=== PATIENT | female | born 1995 | race Caucasian/White ===

== ENCOUNTER → 2023-10-12 13:27 | Outpatient (REF) | payer BC, SELFPAY | LOC: PNTC 13:27 | PROVIDERS: ATTENDING PHYSICIAN Obstetrics & Gynecology | DX: O99.210 Obesity complicating pregnancy, unspecified trimester (principal) | CPT/HCPCS: 76811 ==

== ENCOUNTER → 2023-11-09 08:09 | Outpatient (REF) | payer BC, SELFPAY | LOC: PNTC 08:09 | PROVIDERS: ATTENDING PHYSICIAN Obstetrics & Gynecology | DX: O99.210 Obesity complicating pregnancy, unspecified trimester (principal) | CPT/HCPCS: 76816 ==

== ENCOUNTER 2023-12-24 20:11 | Emergency (ER) | payer BC, SELFPAY ==
[2023-12-24 20:15] VITALS: BP 156/97; BMI 45.9
--- NOTE | 2023-12-24 22:59 | ED.SKININJ ---
HPI-Injury
General
Chief Complaint: Bite
Source: patient
Time Seen by Provider: 12/24/23 21:44
Nursing documentation reviewed up to this point in time: agreed with
Travel History
Have you had any contact with someone who has COVID-19?: No
Do you have any symptoms of coronavirus? Fever > 100 degrees, chills, cough, shortness of breath, sore throat, loss of taste or smell, muscle aches, or headache?: No
History of Present Illness-Injury
Initial Injury comments:
Pleasant 28-year-old female who is 32 weeks was bitten by her vaccinated kitten today. She has bite coyne on her right hand. Denies any other injury. Last tetanus was 1 month ago. Denies fever, chills, nausea or vomiting.
Past History
Past History
ED Past Medical History: None
ED Past Surgical History: None
Social History
Tobacco: Non-smoker
Review of Systems
Review of Systems
Allergies reviewed?: Yes
All Other Systems: ROS reviewed and negative except as documented in HPI and ROS
Skin Exam
Bite
Right Hand:
Type: animal (Cat)
Skin has: puncture wounds
Surrounding area around bite has: no evidence of erythema
Distal skin color and temperature: normal-warm & good color
Normal distal neurovascular exam: Yes
Phy Exam
General Physical Exam
General Presentation: well appearing and no apparent distress
Cardiovascular Exam
Cardiovascular Exam: regular rate/rhythm and no edema
Pulmonary Exam
Pulmonary Exam: lungs clear and no respiratory distress
Neurological Exam
Neurological Exam: alert and oriented x3
Musculoskeletal Exam
Musculoskeletal Exam: full ROM
Skin Exam
Skin Exam: normal color and warm/dry
Psychiatric Exam
Psychiatric Exam: normal mood/affect
Course
Orders/Labs/Results
Orders:
Orders
12/24/23 21:46
Hand, Right 3 View [CR Hand - Right Min 3 Views] Urgent
Comment:
Reason For Exam: foreign body possib;e
12/24/23 23:03
Amoxicillin 875 mg/Clav 125 mg [Augmentin 875 mg/125 mg] 1 tablet PO NOW STA
Vital Signs
Initial and Last Documented VS:
Initial Vital Signs
Temp Pulse Resp BP Pulse Ox
98.5 F 113 20 156/97 98
12/24/23 20:15 12/24/23 20:15 12/24/23 20:15 12/24/23 20:15 12/24/23 20:15
Last Documented Vital Signs
Temp Pulse Resp BP Pulse Ox
98.5 F 113 20 156/97 98
12/24/23 20:15 12/24/23 20:15 12/24/23 20:15 12/24/23 20:15 12/24/23 20:15
*Critical Care Note
Total Time (30-74mins, 75-104mins- exclusive of procedures): Not Applicable
ED Attending Note
-
Portions of this chart may have been created with voice recognition software.� Occasional wrong word or��sound alike� substitutions may have occurred due to the inherent limitations of voice recognition software.
Discharge Plan
Departure
Patient Disposition: Home (Routine Discharge)
Date of Disposition: 12/24/23
Time of Disposition: 23:01
Patient with high blood pressure during this ER visit?: Yes
Discharge Problem:
Cat bite of hand
Instructions: Animal Bites (DC), Wound Care (DC), BLOOD PRESSURE
Prescriptions:
New
amoxicillin-pot clavulanate 875-125 mg tablet
1 tab PO BID Qty: 20 0RF
No Action
No Current Medications
Referrals:
Stephen Rojo MD [Family Provider] - Follow up in 2-3 days (For wound check)
Activity Restrictions/Additional Instructions:
Your prescriptions were sent to the pharmacy you indicated
It was a pleasure meeting you and taking part in your care. We hope for your continued healing and wellness.
Please read discharge instructions in their entirety. However, they are for general education and may not describe your exact diagnosis at discharge. Information on your ER visit and medical conditions were discussed with you along with appropriate
follow up information...
If indicated, please take your medications as instructed and indicated on discharge paperwork.
Please schedule a follow up appointment as directed. Call to schedule an appointment
Please return to the emergency department with ANY change in, persisting, or worsening of symptoms. If any of your symptoms do not improve, or persist, or become more severe within 6-12 hours, please return to the emergency department for further
care.
Please return to the emergency department if you develop a headache, neck pain/stiffness, fever greater than 100.4F, chest pain, shortness of breath, persistent nausea, vomiting, slurred speech, difficulty walking, numbness/tingling, weakness, signs
of infection or any other symptoms that are worrisome to you.
If you have any questions or concerns please do not hesitate to call the Hospital at or E-mail me directly at [email or web address]
Interventions
Interventions:
*Risk Screen - Suicide Last Done: 12/24/23 20:15
*Neglect/Abuse Screening Last Done: 12/24/23 20:15
*ED COVID-19 Vaccine History Last Done: 12/24/23 20:15
*Nursing Disposition Last Done: 12/24/23 23:18
ED-Skin Assessment Last Done: 12/24/23 20:48
Discharge Date and Time
Discharge Date/Time: 12/24/23 23:19
Print Language: SOMALI
[2023-12-24] MEDS: AUGMENTIN 875 MG/125 MG 1 TABLET PO (23:17)
== END 2023-12-24 23:19 | disposition home or self-care (01) ==
LOC: EMR 20:11
PROVIDERS: EMERGENCY PHYSICIAN Student in an Organized Health Care Education/Training Program; FAMILY PHYSICIAN Family Medicine
DX: O99.891 Other specified diseases and conditions complicating pregnancy (principal); S61.431A Puncture wound without foreign body of right hand, initial encounter; W55.01XA Bitten by cat, initial encounter; Z3A.32 32 weeks gestation of pregnancy
CPT/HCPCS: 99282; 73130

== ENCOUNTER → 2023-12-26 11:02 | Outpatient (REF) | payer BC, SELFPAY | LOC: PNTC 11:02 | PROVIDERS: ATTENDING PHYSICIAN Obstetrics & Gynecology | DX: O09.529 Supervision of elderly multigravida, unspecified trimester (principal); O99.210 Obesity complicating pregnancy, unspecified trimester | CPT/HCPCS: 76816 ==

== ENCOUNTER 2024-01-05 13:20 | Observation (INO) | payer BC, SELFPAY ==
[2024-01-05 13:46] LABS: Urine Albumin Negative (Neg - Trace); Urine Bilirubin 1+ (Negative); Urine Character Clear (Clear); Urine Color Yellow; Urine Glucose Negative (Negative); Urine Ketone Negative (Negative); Urine Leukocyte 1+ (Negative); Urine Nitrite Negative (Negative); Urine Occult Blood Negative (Negative); Urine Specific Gravity 1.025 (<1.030); Urine Urobilinogen 2+ (Neg - 1+)
[2024-01-05 13:58] LABS: % Basophils 0.3 % (0-2); % Eosinophils 0.3 % (0-6); % Immature Granulocytes 0.4 % (0-0.5); % Lymphocytes 14.9 % (20.5-51.1); % Monocytes 5.5 % (1.7-9.3); % Neutrophils 78.6 % (42.2-75.2); Absolute Lymphocytes 1.5 10^3/uL (1.2-3.4); Absolute Monocytes 0.5 10^3/uL (0.1-0.6); Absolute Neutrophils 7.7 10^3/uL (1.4-6.5); Hematocrit 32.3 % (37.0-47.0); Hemoglobin 10.6 g/dL (12.0-16.0); Mean Corp Hgb Conc. 32.8 g/dL (33.0-37.0); Mean Corpuscular Hgb 26.9 pg (27.0-31.0); Nucleated Red Blood Cells % 0 %; Platelet Count 254 10^3/uL (130-400); Red Blood Cell Count 3.94 10^6/uL (4.20-5.40); Red Cell Dist. Width 13.8 % (11.5-14.5); White Blood Cell Count 9.8 10^3/uL (4.8-10.8)
[2024-01-05 14:09] LABS: ALT (SGPT) 134 U/L (0-35); AST (SGOT) 66 U/L (14-36); Albumin 3.3 g/dl (3.5-5.0); Alkaline Phosphatase 166 U/L (38-126); Blood Urea Nitrogen 7 mg/dl (7-17); Calcium 8.9 mg/dl (8.4-10.2); Carbon Dioxide 22 mmol/L (22-30); Chloride 105 mmol/L (98-107); Glucose 75 mg/dl (70-99); Sodium 130 mmol/L (135-145); Total Bilirubin 0.5 mg/dl (0.2-1.3); Total Protein 6.6 g/dl (6.3-8.2); eGFR > 60.00
[2024-01-05 14:19] VITALS: BP 132/72; BMI 45.9
[2024-01-05 14:34] LABS: Protein/creatinine Ratio 0.1; Urine Protein 17 mg/dl
[2024-01-05 14:59] LABS: Urine Calcium Oxalate Crystals Present
[2024-01-05 15:01] LABS: Urine Red Blood Cell 0-2 /HPF (0-2)
[2024-01-05 15:02] LABS: Urine Bacteria Moderate (Negative)
[2024-01-05 15:03] LABS: Urine Squamous Cell 0-2 /LPF (Few)
[2024-01-08 16:14] LABS: Bile Acids (Cholylglycine) 9 umol/L (0-10)
== END 2024-01-05 15:35 | disposition home or self-care (01) ==
LOC: PNTC-IN 13:20
PROVIDERS: Obstetrics & Gynecology; ADMITTING PHYSICIAN Obstetrics & Gynecology
DX: O26.643 Intrahepatic cholestasis of pregnancy, third trimester (principal); K83.1 Obstruction of bile duct; R74.01 Elevation of levels of liver transaminase levels; Z3A.33 33 weeks gestation of pregnancy
CPT/HCPCS: 59025; 80053; 81003; 81015; 82239; 82570; 84156; 85025; G0378

== ENCOUNTER → 2024-01-09 10:30 | Outpatient (REF) | payer BC, SELFPAY | LOC: PNTC 10:30 | PROVIDERS: ATTENDING PHYSICIAN Obstetrics & Gynecology | DX: O99.210 Obesity complicating pregnancy, unspecified trimester (principal); O09.529 Supervision of elderly multigravida, unspecified trimester | CPT/HCPCS: 59025; 76815 ==

== ENCOUNTER 2024-01-12 14:06 | Observation (INO) | payer BC, SELFPAY ==
[2024-01-12 14:16] VITALS: BMI 45.8
[2024-01-12 14:19] VITALS: BP 133/76
[2024-01-12 14:35] LABS: Platelet Count 259 10^3/uL (130-400)
[2024-01-12 15:13] LABS: ALT (SGPT) 95 U/L (0-35); AST (SGOT) 37 U/L (14-36); Albumin 3.2 g/dl (3.5-5.0); Alkaline Phosphatase 152 U/L (38-126); Direct Bilirubin 0.3 mg/dl (0.0-0.4); Total Bilirubin 0.3 mg/dl (0.2-1.3); Total Protein 6.4 g/dl (6.3-8.2)
[2024-01-14 18:29] LABS: Bile Acids (Cholylglycine) 22 umol/L (0-10)
== END 2024-01-12 15:50 | disposition home or self-care (01) ==
LOC: PNTC-IN 14:06
PROVIDERS: ADMITTING PHYSICIAN Obstetrics & Gynecology
DX: O26.643 Intrahepatic cholestasis of pregnancy, third trimester (principal); K83.1 Obstruction of bile duct; Z3A.34 34 weeks gestation of pregnancy
CPT/HCPCS: 59025; 80076; 82239; 85049; G0378

== ENCOUNTER → 2024-01-16 10:29 | Outpatient (REF) | payer BC, SELFPAY | LOC: PNTC 10:29 | PROVIDERS: ATTENDING PHYSICIAN Obstetrics & Gynecology | DX: O99.210 Obesity complicating pregnancy, unspecified trimester (principal); O09.529 Supervision of elderly multigravida, unspecified trimester | CPT/HCPCS: 59025; 76815 ==

== ENCOUNTER 2024-01-19 14:00 | Observation (INO) | payer BC, SELFPAY ==
[2024-01-19 14:07] VITALS: BP 131/80; BMI 45.8
[2024-01-19 14:48] LABS: Platelet Count 254 10^3/uL (130-400)
[2024-01-19 14:55] LABS: ALT (SGPT) 56 U/L (0-35); AST (SGOT) 29 U/L (14-36)
[2024-01-19 15:22] LABS: Albumin 3.4 g/dl (3.5-5.0); Alkaline Phosphatase 160 U/L (38-126); Blood Urea Nitrogen 10 mg/dl (7-17); Calcium 9.4 mg/dl (8.4-10.2); Carbon Dioxide 21 mmol/L (22-30); Chloride 105 mmol/L (98-107); Estimated Creatinine Clearance > 125 ml/min; Glucose 77 mg/dl (70-99); Potassium 4.1 mmol/L (3.5-5.1); Sodium 133 mmol/L (135-145); Total Bilirubin 0.4 mg/dl (0.2-1.3); Total Protein 6.6 g/dl (6.3-8.2); eGFR > 60.00
[2024-01-19 15:32] LABS: Urine Protein 9 mg/dl
[2024-01-22 02:12] LABS: Bile Acids (Cholylglycine) 6 umol/L (0-10)
== END 2024-01-19 16:00 | disposition home or self-care (01) ==
LOC: PNTC-IN 14:00
PROVIDERS: Obstetrics & Gynecology; ADMITTING PHYSICIAN Obstetrics & Gynecology
DX: O26.643 Intrahepatic cholestasis of pregnancy, third trimester (principal); K83.1 Obstruction of bile duct; Z3A.34 34 weeks gestation of pregnancy
CPT/HCPCS: 59025; 80053; 82239; 82570; 84156; 85049; G0378

== ENCOUNTER → 2024-01-23 10:33 | Outpatient (REF) | payer BC, SELFPAY | LOC: PNTC 10:33 | PROVIDERS: ATTENDING PHYSICIAN Obstetrics & Gynecology | DX: O09.529 Supervision of elderly multigravida, unspecified trimester (principal); O99.210 Obesity complicating pregnancy, unspecified trimester | CPT/HCPCS: 59025; 76816 ==

== ENCOUNTER 2024-01-26 14:04 | Observation (INO) | payer BC, SELFPAY ==
[2024-01-26 14:36] LABS: Platelet Count 246 10^3/uL (130-400)
[2024-01-26 14:40] VITALS: BP 144/91; BMI 45.9
[2024-01-26 15:01] LABS: ALT (SGPT) 45 U/L (0-35); AST (SGOT) 27 U/L (14-36); Albumin 3.1 g/dl (3.5-5.0); Alkaline Phosphatase 145 U/L (38-126); Blood Urea Nitrogen 8 mg/dl (7-17); Calcium 9.5 mg/dl (8.4-10.2); Carbon Dioxide 19 mmol/L (22-30); Chloride 109 mmol/L (98-107); Estimated Creatinine Clearance > 125 ml/min; Glucose 126 mg/dl (70-99); Potassium 3.7 mmol/L (3.5-5.1); Sodium 133 mmol/L (135-145); Total Bilirubin 0.3 mg/dl (0.2-1.3); Total Protein 6.3 g/dl (6.3-8.2); eGFR > 60.00
== END 2024-01-26 15:30 | disposition home or self-care (01) ==
LOC: PNTC-IN 14:04
PROVIDERS: ADMITTING PHYSICIAN Obstetrics & Gynecology
DX: O26.643 Intrahepatic cholestasis of pregnancy, third trimester (principal); K83.1 Obstruction of bile duct; Z3A.36 36 weeks gestation of pregnancy
CPT/HCPCS: 59025; 80053; 85049; 86850; 86900; 86901; G0378

== ENCOUNTER 2024-01-30 20:04 | Inpatient (IN) | payer BC, SELFPAY ==
[2024-01-30 20:25] VITALS: BP 148/88; BMI 45.9
[2024-01-30 20:41] LABS: % Basophils 0.4 % (0-2); % Eosinophils 0.3 % (0-6); % Immature Granulocytes 0.4 % (0-0.5); % Lymphocytes 14.8 % (20.5-51.1); % Monocytes 5.1 % (1.7-9.3); Absolute Immature Granulocytes 0.1 10^3/uL (0-0.05); Absolute Lymphocytes 1.7 10^3/uL (1.2-3.4); Absolute Monocytes 0.6 10^3/uL (0.1-0.6); Absolute Neutrophils 8.8 10^3/uL (1.4-6.5); Hematocrit 31.4 % (37.0-47.0); Mean Corpuscular Hgb 27.1 pg (27.0-31.0); Mean Corpuscular Volume 77.3 fL (81.0-99.0); Mean Platelet Volume 9.1 fL (7.4-10.4); Nucleated Red Blood Cells % 0 %; Platelet Count 264 10^3/uL (130-400); Red Blood Cell Count 4.06 10^6/uL (4.20-5.40); Red Cell Dist. Width 13.9 % (11.5-14.5); White Blood Cell Count 11.2 10^3/uL (4.8-10.8)
[2024-01-30] MEDS: CYTOTEC 50 MICROGRAM VAG (20:42)
[2024-01-30 21:12] LABS: ALT (SGPT) 41 U/L (0-35); AST (SGOT) 29 U/L (14-36); Albumin 3.5 g/dl (3.5-5.0); Alkaline Phosphatase 156 U/L (38-126); Blood Urea Nitrogen 10 mg/dl (7-17); Calcium 9.6 mg/dl (8.4-10.2); Carbon Dioxide 18 mmol/L (22-30); Chloride 107 mmol/L (98-107); Estimated Creatinine Clearance > 125 ml/min; Glucose 92 mg/dl (70-99); Potassium 4.1 mmol/L (3.5-5.1); Sodium 135 mmol/L (135-145); Total Bilirubin 0.4 mg/dl (0.2-1.3); Total Protein 6.8 g/dl (6.3-8.2); eGFR > 60.00
[2024-01-30] MEDS: DIFLUCAN 150 MG PO (21:28)
[2024-01-30] MEDS: MONISTAT 7 VAGINAL CREAM 1 APPLIC VAG (21:29)
[2024-01-31] MEDS: CYTOTEC 50 MICROGRAM PO ×2 (00:44→04:54)
[2024-01-31] MEDS: LR 1000 IV ×2 (09:26→15:12)
[2024-01-31] MEDS: CYTOTEC PO ×3 (09:29→17:16)
[2024-01-31] MEDS: PENICILLIN 110 UNITS IV (09:29)
[2024-01-31 12:12] LABS: Protein/creatinine Ratio 0.2; Urine Protein 30 mg/dl
[2024-01-31] MEDS: PENICILLIN 55 UNITS IV ×2 (13:41→17:51)
[2024-01-31] MEDS: PITOCIN 30 UNITS/NSS 500 ML IV (15:12)
[2024-01-31] MEDS: MORPHINE SULFATE 2 MG IV (16:38)
[2024-01-31] MEDS: SUBLIMAZE 100 MCG EPIDURAL (17:49)
[2024-01-31] MEDS: FENTANYL/BUPIVACAINE 100 EPIDURAL (17:51)
[2024-01-31] MEDS: PENICILLIN IV (21:30)
[2024-01-31] MEDS: MONISTAT 7 VAGINAL CREAM VAG (22:57)
[2024-02-01 05:11] LABS: Hematocrit 29.8 % (37.0-47.0); Hemoglobin 10.5 g/dL (12.0-16.0)
[2024-02-01 05:18] LABS: ALT (SGPT) 47 U/L (0-35); AST (SGOT) 44 U/L (14-36); Alkaline Phosphatase 157 U/L (38-126); Blood Urea Nitrogen 8 mg/dl (7-17); Calcium 9.2 mg/dl (8.4-10.2); Carbon Dioxide 18 mmol/L (22-30); Chloride 107 mmol/L (98-107); Estimated Creatinine Clearance > 125 ml/min; Glucose 73 mg/dl (70-99); Potassium 4.2 mmol/L (3.5-5.1); Sodium 132 mmol/L (135-145); Total Bilirubin 0.4 mg/dl (0.2-1.3); Total Protein 6.1 g/dl (6.3-8.2); eGFR > 60.00
[2024-02-01] MEDS: FEOSOL 325 MG PO (08:04)
[2024-02-01] MEDS: PRENATAL PLUS 1 TABLET PO (08:04)
[2024-02-01] MEDS: MOTRIN 600 MG PO (08:04)
[2024-02-01] MEDS: MONISTAT 7 VAGINAL CREAM 1 APPLIC VAG (20:33)
[2024-02-02 05:29] LABS: ALT (SGPT) 54 U/L (0-35); AST (SGOT) 45 U/L (14-36)
[2024-02-02] MEDS: PRENATAL PLUS 1 TABLET PO (08:15)
[2024-02-02] MEDS: M-M-R II 0.5 ML SC (08:16)
[2024-02-03 13:18] LABS: Syphilis/T. pallidum Ab Reflex Negative (Negative)
== END 2024-02-02 12:48 | disposition home or self-care (01) | DRG 805 ==
LOC: LDRP 20:04
PROVIDERS: Obstetrics & Gynecology; ADMITTING PHYSICIAN Obstetrics & Gynecology
PROC: 3E033VJ Introduction of Other Hormone into Peripheral Vein, Percutaneous Approach (ICD-10-PCS; 2024-01-30)
PROC: 3E0P7VZ Introduction of Hormone into Female Reproductive, Via Natural or Artificial Opening (ICD-10-PCS; 2024-01-30)
PROC: 10E0XZZ Delivery of Products of Conception, External Approach (ICD-10-PCS; 2024-01-31)
PROC: 10907ZC Drainage of Amniotic Fluid, Therapeutic from Products of Conception, Via Natural or Artificial Opening (ICD-10-PCS; 2024-01-31)
PROC: 0UQMXZZ Repair Vulva, External Approach (ICD-10-PCS; 2024-01-31)
DX: O26.643 Intrahepatic cholestasis of pregnancy, third trimester (principal); K83.1 Obstruction of bile duct; Z37.0 Single live birth; O98.82 Other maternal infectious and parasitic diseases complicating childbirth; Z3A.37 37 weeks gestation of pregnancy; O99.824 Streptococcus B carrier state complicating childbirth; O99.02 Anemia complicating childbirth; D64.9 Anemia, unspecified; O99.344 Other mental disorders complicating childbirth; F32.A Depression, unspecified; B37.31 Acute candidiasis of vulva and vagina; O13.4 Gestational [pregnancy-induced] hypertension without significant proteinuria, complicating childbirth; O70.0 First degree perineal laceration during delivery
CPT/HCPCS: 88307; 80053; 82570; 84156; 84450; 84460; 85014; 85018; 85025; 86780; 86850; 86900; 86901; 90707

== ENCOUNTER → 2025-06-19 13:20 | Outpatient (REF) | payer BC, SELFPAY | LOC: PNTC 13:20 | PROVIDERS: ATTENDING PHYSICIAN Obstetrics & Gynecology | DX: Z87.59 Personal history of other complications of pregnancy, childbirth and the puerperium (principal); O99.212 Obesity complicating pregnancy, second trimester; E66.01 Morbid (severe) obesity due to excess calories | CPT/HCPCS: 76805 ==

== ENCOUNTER → 2025-07-15 15:59 | Outpatient (REF) | payer BC, SELFPAY | LOC: PNTC 15:59 | PROVIDERS: ATTENDING PHYSICIAN Obstetrics & Gynecology | DX: O99.212 Obesity complicating pregnancy, second trimester (principal); E66.01 Morbid (severe) obesity due to excess calories; Z87.59 Personal history of other complications of pregnancy, childbirth and the puerperium; Z36.3 Encounter for antenatal screening for malformations; Z36.86 Encounter for antenatal screening for cervical length | CPT/HCPCS: 76811; 76817 ==

== ENCOUNTER → 2025-08-20 11:23 | Outpatient (REF) | payer BC, SELFPAY | LOC: PNTC 11:23 | PROVIDERS: ATTENDING PHYSICIAN Obstetrics & Gynecology | DX: O99.213 Obesity complicating pregnancy, third trimester (principal); Z87.19 Personal history of other diseases of the digestive system | CPT/HCPCS: 76816 ==